=== PATIENT | female | born 1985 | race Caucasian/White ===

== ENCOUNTER 2017-04-18 15:39 | Emergency (ER) | payer OTHER, SELFPAY ==
[~2017-04-18] VITALS: Ht 157.5 cm; Wt 67.7 kg
[~2017-04-18 15:39] MED LIST: LORA0.5T PO
[2017-04-18 15:46] VITALS: BP 121/79
== END 2017-04-18 16:29 | disposition home or self-care (01) ==
LOC: ED 16:25
DX: K04.7 Periapical abscess without sinus (principal); K02.9 Dental caries, unspecified
CPT/HCPCS: 99283

== ENCOUNTER 2018-03-18 14:30 | Inpatient (IN) | payer MEDICAID ==
[~2018-03-18] VITALS: Ht 157.5 cm; Wt 65.4 kg
[~2018-03-18 14:30] MED LIST changes: +AMOX-291 PO; +CLIN300C8 PO
[2018-03-18 15:01] LABS: MEAN CORPUSCULAR HEMOGLOBIN 31.1 pg (27.0-34.8); MEAN CORPUSCULAR HGB CONC 34.1 g/dL (32.4-35.8); MEAN CORPUSCULAR VOLUME 91.1 fL (80-100); MEAN PLATELET VOLUME 8.6 fL (7.4-10.4); PLATELET COUNT 300 x10^3/uL (130-400); RED BLOOD COUNT 4.16 x10^6/uL (3.82-5.3); RED CELL DISTRIBUTION WIDTH 13.5 % (9.6-15.2)
[2018-03-18 15:08] LABS: ALBUMIN 2.6 g/dL (3.4-5.0); ANION GAP 15 mmol/L (5-15); CHLORIDE 105 mmol/L (98-107)
[2018-03-18 15:11] LABS: ALANINE AMINOTRANSFERASE 92 U/L (12-78); ALKALINE PHOSPHATASE 134 U/L (45-117); BILIRUBIN,TOTAL 0.5 mg/dL (0.2-1.0); CREATININE 0.49 mg/dL (0.55-1.02); TOTAL PROTEIN 6.3 g/dL (6.4-8.2)
[2018-03-18] MEDS ORDERED: CEFTRIAXONE PMX 1GM/50ML 50 ML IV ONE (15:30)
[2018-03-18] MEDS ORDERED: VANCOMYCIN PER PHARMACY MC PRN (15:30)
[2018-03-18] MEDS ORDERED: POTASSIUM CHLORIDE 20 MEQ TAB.ER.PRT PO ONE (15:30)
[2018-03-18 15:41] LABS: BASOPHILS # (AUTO) 0.02 x10^3/uL (0-0.1); BASOPHILS % (AUTO) 0 % (0-1); EOSINOPHILS % (AUTO) 0 % (1-7); LYMPHOCYTES # (AUTO) 1.51 x10^3/uL (1-3.4); LYMPHOCYTES % (AUTO) 15 % (22-44); MD SCAN; MONOCYTES % (AUTO) 8 % (2-9); NEUTROPHILS % (AUTO) 77 % (42-75)
[2018-03-18] MEDS ORDERED: AZIT250T PO (15:41)
[2018-03-18 15:53] LABS: RAPID INFLUENZA A Negative (Negative); RAPID INFLUENZA B Negative (Negative)
[2018-03-18] MEDS ORDERED: PHARMACOKINETIC CONSULTATION MC ONE (16:00)
[2018-03-18] MEDS ORDERED: VANCOMYCIN 1,400 MG in SODIUM CHLORIDE 0.9% 250 ML IV SCH (16:00)
[2018-03-18] MEDS ORDERED: CEFTRIAXONE PMX 1GM/50ML 50 ML ONE (16:03)
[2018-03-18] MEDS ORDERED: POTASSIUM CHLORIDE 20 MEQ TAB.ER.PRT ONE (16:03)
[2018-03-18 16:50] LABS: INTERNATIONAL NORMALIZED RATIO 0.91 (0.93-1.1); PROTHROMBIN TIME 9.7 Seconds (9.6-11.5)
[2018-03-18 18:07] VITALS: BP 108/73
[2018-03-18] MEDS: ACETAMINOPHEN 325 MG TABLET PO PRN ×2 (18:24→23:46)
[2018-03-18] MEDS: AZITHROMYCIN 500 MG in SODIUM CHLORIDE 0.9% 250 ML IV SCH (18:24)
[2018-03-18] MEDS: NS + 20MEQ KCL 1,000 ML IV SCH (18:24)
[2018-03-18 19:25] LABS: MICROSCOPIC NOT IND
[2018-03-18] MEDS ORDERED: ALBUTEROL SULFATE 2.5 MG/3 ML ONE (19:40)
[2018-03-18] MEDS ORDERED: ALBUTEROL SULFATE 2.5 MG/3 ML NPPB PRN (20:00)
[2018-03-18] MEDS: ALBUTEROL SULFATE 2.5 MG/3 ML NPPB SCH (20:00)
[2018-03-18 20:08] LABS: CULTURE INDICATED? NO
[2018-03-18 20:17] VITALS: BP 108/73
[2018-03-19 00:18] VITALS: BP 104/65
[2018-03-19] MEDS: NS + 20MEQ KCL 1,000 ML IV SCH ×2 (04:15→16:56)
[2018-03-19 06:06] LABS: BASOPHILS # (AUTO) 0.03 x10^3/uL (0-0.1); BASOPHILS % (AUTO) 1 % (0-1); EOSINOPHILS # (AUTO) 0.03 x10^3/uL (0-0.4); EOSINOPHILS % (AUTO) 0 % (1-7); LYMPHOCYTES % (AUTO) 30 % (22-44); MD NO; MEAN CORPUSCULAR HEMOGLOBIN 31.3 pg (27.0-34.8); MEAN CORPUSCULAR VOLUME 91.9 fL (80-100); MEAN PLATELET VOLUME 8.8 fL (7.4-10.4); MONOCYTES # (AUTO) 1.17 x10^3/uL (0.2-0.8); MONOCYTES % (AUTO) 16 % (2-9); NEUTROPHILS # (AUTO) 4.02 x10^3/uL (1.8-6.8); NEUTROPHILS % (AUTO) 54 % (42-75); PLATELET COUNT 280 x10^3/uL (130-400); RED BLOOD COUNT 3.58 x10^6/uL (3.82-5.3)
[2018-03-19 06:10] LABS: CHLORIDE 113 mmol/L (98-107)
[2018-03-19 06:16] LABS: ALANINE AMINOTRANSFERASE 75 U/L (12-78); ALBUMIN 2.2 g/dL (3.4-5.0); ALKALINE PHOSPHATASE 139 U/L (45-117); ANION GAP 8 mmol/L (5-15); BILIRUBIN,TOTAL 0.3 mg/dL (0.2-1.0); CALCIUM 7.6 mg/dL (8.5-10.1); CREATININE 0.29 mg/dL (0.55-1.02); TOTAL PROTEIN 5.5 g/dL (6.4-8.2)
[2018-03-19] MEDS: ALBUTEROL SULFATE 2.5 MG/3 ML NPPB SCH ×4 (07:00→21:03)
[2018-03-19] MEDS: GUAIFENESIN 100 MG/5 ML, 5ML UDC PO PRN ×3 (07:16→23:23)
[2018-03-19] MEDS: PRENATAL VIT/IRON/FA 1 EACH TABLET PO SCH (07:16)
[2018-03-19] MEDS: ACETAMINOPHEN 325 MG TABLET PO PRN ×2 (07:24→17:02)
[2018-03-19 08:09] VITALS: BP_SYST 103; BP_SYST 130; BP_DIAS 67; BP_DIAS 81
[2018-03-19] MEDS ORDERED: POTASSIUM CHLORIDE 40 MEQ in SODIUM CHLORIDE 0.9% 500 ML IV ONE (09:30)
[2018-03-19 14:52] VITALS: BP 105/55
[2018-03-19] MEDS: CEFTRIAXONE PMX 1GM/50ML 50 ML IV SCH (16:55)
[2018-03-19] MEDS: AZITHROMYCIN 500 MG in SODIUM CHLORIDE 0.9% 250 ML IV SCH (17:30)
[2018-03-19 18:29] VITALS: BP 98/62
[2018-03-19] MEDS ORDERED: GUAIFENESIN 100 MG/5 ML, 10ML UDC ONE (23:20)
[2018-03-20 00:28] VITALS: BP 97/60
[2018-03-20] MEDS: NS + 20MEQ KCL 1,000 ML IV SCH ×3 (01:42→21:01)
[2018-03-20] MEDS: GUAIFENESIN 100 MG/5 ML, 5ML UDC PO PRN (05:43)
[2018-03-20 06:06] LABS: MEAN CORPUSCULAR HEMOGLOBIN 30.6 pg (27.0-34.8); MEAN CORPUSCULAR HGB CONC 33.6 g/dL (32.4-35.8); MEAN CORPUSCULAR VOLUME 91.1 fL (80-100); MEAN PLATELET VOLUME 8.7 fL (7.4-10.4); PLATELET COUNT 352 x10^3/uL (130-400); RED BLOOD COUNT 3.73 x10^6/uL (3.82-5.3); RED CELL DISTRIBUTION WIDTH 13.5 % (9.6-15.2)
[2018-03-20 06:18] LABS: ALANINE AMINOTRANSFERASE 64 U/L (12-78); ALBUMIN 2.1 g/dL (3.4-5.0); ANION GAP 10 mmol/L (5-15); CALCIUM 7.6 mg/dL (8.5-10.1); CHLORIDE 114 mmol/L (98-107); CREATININE 0.35 mg/dL (0.55-1.02)
[2018-03-20 06:28] LABS: ALKALINE PHOSPHATASE 148 U/L (45-117); BILIRUBIN,TOTAL 0.3 mg/dL (0.2-1.0); THYROID STIMULATING HORMONE 0.782 mIU/L (0.358-3.740); TOTAL PROTEIN 5.6 g/dL (6.4-8.2)
[2018-03-20 06:35] LABS: BASOPHILS # (AUTO) 0.04 x10^3/uL (0-0.1); BASOPHILS % (AUTO) 0 % (0-1); EOSINOPHILS # (AUTO) 0.08 x10^3/uL (0-0.4); EOSINOPHILS % (AUTO) 1 % (1-7); LYMPHOCYTES # (AUTO) 2.53 x10^3/uL (1-3.4); LYMPHOCYTES % (AUTO) 24 % (22-44); MD SCAN; MONOCYTES # (AUTO) 1.59 x10^3/uL (0.2-0.8); MONOCYTES % (AUTO) 15 % (2-9); NEUTROPHILS # (AUTO) 6.37 x10^3/uL (1.8-6.8); NEUTROPHILS % (AUTO) 60 % (42-75)
[2018-03-20 09:32] VITALS: BP 103/60
[2018-03-20] MEDS: PRENATAL VIT/IRON/FA 1 EACH TABLET PO SCH (09:39)
[2018-03-20 13:05] VITALS: BP 119/77
[2018-03-20] MEDS: CEFTRIAXONE PMX 1GM/50ML 50 ML IV SCH (17:18)
[2018-03-20] MEDS: AZITHROMYCIN 500 MG in SODIUM CHLORIDE 0.9% 250 ML IV SCH (18:08)
[2018-03-20 19:50] VITALS: BP 104/69
[2018-03-21 02:16] VITALS: BP 97/61
[2018-03-21] MEDS: NS + 20MEQ KCL 1,000 ML IV SCH ×2 (04:35→13:18)
[2018-03-21 05:18] LABS: MEAN CORPUSCULAR HEMOGLOBIN 31.6 pg (27.0-34.8); MEAN CORPUSCULAR HGB CONC 34.3 g/dL (32.4-35.8); MEAN CORPUSCULAR VOLUME 92.3 fL (80-100); MEAN PLATELET VOLUME 8.2 fL (7.4-10.4); PLATELET COUNT 391 x10^3/uL (130-400); RED BLOOD COUNT 3.52 x10^6/uL (3.82-5.3); RED CELL DISTRIBUTION WIDTH 13.4 % (9.6-15.2)
[2018-03-21 05:28] LABS: ALBUMIN 2.1 g/dL (3.4-5.0); ANION GAP 9 mmol/L (5-15); CALCIUM 7.4 mg/dL (8.5-10.1); CHLORIDE 114 mmol/L (98-107); CREATININE 0.33 mg/dL (0.55-1.02)
[2018-03-21 05:57] LABS: BASOPHILS # (AUTO) 0.05 x10^3/uL (0-0.1); BASOPHILS % (AUTO) 1 % (0-1); EOSINOPHILS # (AUTO) 0.17 x10^3/uL (0-0.4); EOSINOPHILS % (AUTO) 2 % (1-7); LYMPHOCYTES # (AUTO) 3.31 x10^3/uL (1-3.4); LYMPHOCYTES % (AUTO) 33 % (22-44); MD SCAN; MONOCYTES % (AUTO) 20 % (2-9); NEUTROPHILS # (AUTO) 4.64 x10^3/uL (1.8-6.8); NEUTROPHILS % (AUTO) 46 % (42-75)
[2018-03-21 07:39] VITALS: BP 99/60
[2018-03-21] MEDS: PRENATAL VIT/IRON/FA 1 EACH TABLET PO SCH (09:01)
[2018-03-21 12:55] VITALS: BP 106/66
[2018-03-21] MEDS ORDERED: GUAI100L11 PO (14:01)
[2018-03-21] MEDS ORDERED: AZIT500T5 PO (14:01)
[2018-03-21] MEDS ORDERED: CEFD300C37 PO (14:01)
[2018-03-21] MEDS ORDERED: Prenatal Vit/Iron/Fa PO (14:08)
== END 2018-03-21 16:00 | disposition home or self-care (01) | DRG 831 ==
LOC: ED 15:03 → EDIP 15:43 → 4WST 17:30
PROVIDERS: ADMIT Family Medicine; ATTEND Family Medicine
DX: O99.512 Diseases of the respiratory system complicating pregnancy, second trimester (principal); J18.9 Pneumonia, unspecified organism; E87.2 Acidosis; G24.9 Dystonia, unspecified; O99.331 Smoking (tobacco) complicating pregnancy, first trimester; F17.210 Nicotine dependence, cigarettes, uncomplicated; O99.282 Endocrine, nutritional and metabolic diseases complicating pregnancy, second trimester; Z3A.14 14 weeks gestation of pregnancy; E87.6 Hypokalemia
CPT/HCPCS: 36415; 36600; 84145; 87400; 99285; J7613; 71046; 80048; 80053; 81003; 82040; 82803; 83605; 84443; 85025; 85610; 85730; 87040; 87070; 87107; 87205; 93005; 94640; 94667; 96374; 96375; G0378; J0456; J0696; J3480; J7040; J7050

== ENCOUNTER 2020-09-12 15:31 | Emergency (ER) | payer MEDICAID ==
[~2020-09-12] VITALS: Ht 157.5 cm; Wt 71.7 kg
[~2020-09-12 15:31] MED LIST changes: +AZIT250T PO; +AZIT500T10 PO; +CEFD300C37 PO; -CLIN300C8 PO; +CLIN300C9 PO; +GUAI100L11 PO; +Prenatal Vit/Iron/Fa PO
--- NOTE | 2020-09-12 17:30 | NUR ---
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
--- NOTE | 2020-09-12 17:46 | NUR ---
TASK RN: DR. GAMBOA AT BEDSIDE FOR EVAL.
[2020-09-12 18:17] LABS: BASOPHILS % (AUTO) 0 % (0-1); EOSINOPHILS % (AUTO) 2 % (1-7); LYMPHOCYTES % (AUTO) 21 % (22-44); MEAN CORPUSCULAR HEMOGLOBIN 31.2 pg (27.0-34.8); MEAN CORPUSCULAR HGB CONC 33.6 g/dL (32.4-35.8); MEAN PLATELET VOLUME 8.9 fL (7.4-10.4); MONOCYTES % (AUTO) 7 % (2-9); NEUTROPHILS % (AUTO) 70 % (42-75); PLATELET COUNT 382 x10^3/uL (130-400); RED BLOOD COUNT 5.39 x10^6/uL (3.82-5.3); RED CELL DISTRIBUTION WIDTH 12.6 % (9.6-15.2)
[2020-09-12 18:21] LABS: ALBUMIN 4.2 g/dL (3.4-5.0); ANION GAP 7 mmol/L (5-15); CALCIUM 9.2 mg/dL (8.5-10.1); CHLORIDE 109 mmol/L (98-107); CREATININE 0.87 mg/dL (0.55-1.02)
[2020-09-12 19:05] VITALS: BP 155/87
== END 2020-09-12 19:47 | disposition home or self-care (01) ==
LOC: ED 16:00
DX: L02.11 Cutaneous abscess of neck (principal); R42 Dizziness and giddiness; G40.909 Epilepsy, unspecified, not intractable, without status epilepticus; Z87.891 Personal history of nicotine dependence
CPT/HCPCS: 36415; 80048; 82040; 85025; 99283